=== PATIENT | female | born 1935 | race Caucasian/White ===

== ENCOUNTER → 2017-10-08 | Outpatient (CLI) | payer MEDICARE, OTHER | END | disposition home or self-care (01) | LOC: HKI 13:17 | DX: M17.0 Bilateral primary osteoarthritis of knee (principal); I10 Essential (primary) hypertension; Z96.643 Presence of artificial hip joint, bilateral | CPT/HCPCS: 73562; 73562-50 ==

== ENCOUNTER → 2017-12-24 | Outpatient (CLI) | payer MEDICARE, OTHER | END | disposition home or self-care (01) | LOC: HKI 10:37 | DX: Z47.1 Aftercare following joint replacement surgery (principal); Z96.652 Presence of left artificial knee joint | CPT/HCPCS: G0463 ==

== ENCOUNTER → 2017-12-27 | Outpatient (CLI) | payer MEDICARE, OTHER | END | disposition home or self-care (01) | LOC: LAB 08:00 | DX: Z01.818 Encounter for other preprocedural examination (principal) | CPT/HCPCS: 87081 ==

== ENCOUNTER 2018-01-03 08:06 | Observation (INO) | payer MEDICARE, OTHER ==
[~2018-01-03 08:06] MED LIST: CEFAZOLIN 2 GM/50 ML (PMX) 50 ML (FOR WT < 120 KG) IVPB; EPHEDrine SULFATE 50 MG/5 ML SYG
[2018-01-03] MEDS: ACETAMINOPHEN 1000MG/100ML IV 100 ML IVPB (10:35)
[2018-01-03] MEDS: LANSOPRAZOLE 30 MG CAP PO (10:37)
[2018-01-03] MEDS: DEXAMETHASONE 4 MG/ML 1 ML INJ IV (10:37)
[2018-01-03] MEDS: ONDANSETRON 4 MG INJ IV ×3 (10:37→19:57)
[2018-01-03] MEDS ORDERED: DIPHENHYDRAMINE 50 MG INJ IV (12:00)
[2018-01-03] MEDS ORDERED: MAGNESIUM HYDROXIDE 30ML CUP PO (12:00)
[2018-01-03] MEDS ORDERED: SENNA/DOCUSATE NA (8.6MG/50MG) TAB PO (12:00)
[2018-01-03] MEDS ORDERED: NA PHOSPHATE/BIPHOS 133 ML ENEMA PR (12:00)
[2018-01-03] MEDS ORDERED: KETOROLAC 15 MG INJ IV (12:00)
[2018-01-03] MEDS ORDERED: BETHANECHOL 25 MG TAB PO (12:00)
[2018-01-03] MEDS ORDERED: BISACODYL 10 MG SUPP PR (12:00)
[2018-01-03] MEDS ORDERED: NALOXONE (0.4 MG/ML) INJ IV (12:00)
[2018-01-03] MEDS ORDERED: BUPIVACAINE 0.75%/DEXT (SPINAL) 2 ML INJ (12:38)
[2018-01-03] MEDS ORDERED: PROPOFOL 20 ML (12:40)
[2018-01-03] MEDS ORDERED: MIDAZOLAM 1 MG/ML 2 ML INJ (12:40)
[2018-01-03] MEDS: LACTATED RINGER'S 1,000 ML IV (12:40)
[2018-01-03] MEDS ORDERED: LIDOCAINE 2% (SDV) 5 ML INJ (12:40)
[2018-01-03] MEDS ORDERED: CEFAZOLIN 1 GM INJ (12:40)
[2018-01-03] MEDS: METHYLPREDNISOLONE 40 MG INJ IV (12:47)
[2018-01-03] MEDS ORDERED: METOCLOPRAMIDE 10 MG INJ (13:26)
[2018-01-03] MEDS ORDERED: ATROPINE 1 MG/10 ML SYRINGE (13:26)
[2018-01-03] MEDS ORDERED: ONDANSETRON 4 MG INJ (13:26)
[2018-01-03] MEDS ORDERED: METHYLPREDNISOLONE 125 MG INJ (13:39)
[2018-01-03] MEDS: TRANEXAMIC ACID 1,000 MG in D5W 100 ML AT INCISION X1 IVPB (14:18)
[2018-01-03] MEDS: TRANEXAMIC ACID 1,000 MG in D5W 100 ML AT CLOSURE X1 IVPB (14:18)
[2018-01-03] MEDS: BACITRACIN 50000 UNITS INJ (14:32)
[2018-01-03] MEDS: POLYMYXIN B 500000 UNIT INJ (14:33)
[2018-01-03] MEDS ORDERED: ROPIVACAINE 0.5 % 30 ML VIAL (14:41)
[2018-01-03] MEDS ORDERED: hydrALAzine 20 MG INJ IV (15:30)
[2018-01-03] MEDS ORDERED: MIDAZOLAM 1 MG/ML 2 ML INJ IV (15:30)
[2018-01-03] MEDS ORDERED: EPHEDrine SULFATE 50 MG/5 ML SYG IV (15:30)
[2018-01-03] MEDS ORDERED: HYDROmorphONE 1 MG/5 ML IV SYRINGE IV ×3 (15:30)
[2018-01-03] MEDS ORDERED: LABETALOL HCL 20MG INJ IV (15:30)
[2018-01-03] MEDS ORDERED: MEPERIDINE 25 MG INJ IV (15:30)
[2018-01-03] MEDS ORDERED: ONDANSETRON 4 MG INJ IV (15:30)
[2018-01-03] MEDS ORDERED: OXYCODONE/ACETAMINOPHEN (5/325) TAB PO ×2 (15:30)
[2018-01-03] MEDS ORDERED: METOCLOPRAMIDE 10 MG INJ IV (15:30)
[2018-01-03] MEDS ORDERED: FENTAnyl 50 MCG/ML VIAL IV ×2 (15:30)
[2018-01-03] MEDS: CEFAZOLIN 1 GM/50 ML (PMX) 50 ML IVPB ×2 (15:39→19:57)
[2018-01-03] MEDS: DOCUSATE SODIUM 100 MG CAP PO (15:39)
[2018-01-03] MEDS: DIPHENHYDRAMINE 50 MG INJ IV (15:39)
[2018-01-03] MEDS: ASPIRIN (EC) 325 MG TAB PO (15:40)
[2018-01-03] MEDS: FENTAnyl 50 MCG/ML VIAL IV (16:24)
[2018-01-03] MEDS: SOD CHLORIDE 0.9% 1,000 ML IV (18:27)
[2018-01-03] MEDS: oxyCODONE 5 MG TAB PO (18:39)
[2018-01-03] MEDS: ARFORMOTEROL TARTRATE 15MCG/2 ML AMP INH (19:25)
[2018-01-03] MEDS: BUDESONIDE (NEB) 0.5MG/2ML AMP INH (19:25)
[2018-01-03] MEDS: METOPROLOL (XL) 25 MG TAB PO (21:00)
[2018-01-03] MEDS: CELECOXIB 100 MG CAP PO (21:00)
[2018-01-03] MEDS: SUCRALFATE 1 GM TAB PO (21:00)
[2018-01-03] MEDS: FISH OIL 1,000 MG CAP PO (21:41)
[2018-01-03] MEDS: MONTELUKAST 10 MG TAB PO (21:41)
[2018-01-03] MEDS: EZETIMIBE 10 MG TAB PO (21:41)
[2018-01-03] MEDS: GABAPENTIN 100 MG CAP PO (21:55)
[2018-01-03] MEDS: LOSARTAN 50 MG TAB PO (21:55)
[2018-01-03] MEDS: traZODone 50 MG TAB PO (23:26)
[2018-01-03] MEDS: AMLODIPINE 5 MG TAB PO (23:27)
[2018-01-04] MEDS: SOD CHLORIDE 0.9% 1,000 ML IV ×2 (00:14→12:44)
[2018-01-04] MEDS: ONDANSETRON 4 MG INJ IV ×2 (01:35→05:48)
[2018-01-04] MEDS: CEFAZOLIN 1 GM/50 ML (PMX) 50 ML IVPB (05:47)
[2018-01-04] MEDS ORDERED: PANTOPRAZOLE (EC) 40 MG TAB PO (06:00)
[2018-01-04] MEDS: LACTATED RINGER'S 1,000 ML IV ×2 (06:00→07:00)
[2018-01-04] MEDS ORDERED: NON-FORMULARY/PATIENT OWN MED (Ubidecarenone (Coq-10) 100 MG) PO (09:00)
[2018-01-04] MEDS: METOPROLOL (XL) 25 MG TAB PO ×2 (09:00→20:18)
[2018-01-04] MEDS: AMLODIPINE 5 MG TAB PO ×2 (09:00→21:00)
[2018-01-04] MEDS ORDERED: LOSARTAN 50 MG TAB PO (09:00)
[2018-01-04] MEDS: ARFORMOTEROL TARTRATE 15MCG/2 ML AMP INH ×2 (09:08→20:51)
[2018-01-04] MEDS: BUDESONIDE (NEB) 0.5MG/2ML AMP INH ×2 (09:19→20:51)
[2018-01-04] MEDS: SUCRALFATE 1 GM TAB PO ×5 (09:25→20:30)
[2018-01-04] MEDS: FISH OIL 1,000 MG CAP PO ×2 (09:25→20:16)
[2018-01-04] MEDS: ASPIRIN (EC) 325 MG TAB PO (09:26)
[2018-01-04] MEDS: DOCUSATE SODIUM 100 MG CAP PO ×2 (09:26→20:16)
[2018-01-04] MEDS: GABAPENTIN 100 MG CAP PO ×2 (09:26→20:21)
[2018-01-04] MEDS: CHOLECALCIFEROL 1,000 UNIT TAB PO (09:26)
[2018-01-04] MEDS: FERROUS FUMARATE (SR) TAB PO ×2 (09:26→20:16)
[2018-01-04 11:17] LABS: ADD MAN DIFF? NO
[2018-01-04 11:21] LABS: BASOPHILS % 0.1 % (0.0-2.0); HEMATOCRIT 37.7 % (37.0-47.0); HEMOGLOBIN 11.8 g/dl (12.0-16.0); LYMPHOCYTES % 9.3 % (15.0-51.0); MEAN CORPUSCULAR HEMOGLOBIN 29.1 pg (29.0-33.0); MEAN CORPUSCULAR HGB CONC 31.3 g/dl (32.0-37.0); MEAN CORPUSCULAR VOLUME 93.1 fl (82.0-101.0); MEAN PLATELET VOLUME 9.9 fl (7.4-10.4); MONOCYTE # 0.7 10^3/ul (0.3-0.9); MONOCYTES % 6.9 % (0.0-11.0); NEUTROPHILS % 83.2 % (39.0-77.0); PLATELET COUNT 196 10^3/UL (140-415); RED BLOOD COUNT 4.05 10^6/ul (4.20-5.40); RED CELL DISTRIBUTION WIDTH 14.2 % (11.5-14.5)
[2018-01-04 11:21] LABS: WHITE BLOOD COUNT 10.8 10^3/ul (4.8-10.8)
[2018-01-04] MEDS: CELECOXIB 100 MG CAP PO ×2 (11:23→20:19)
[2018-01-04 11:46] LABS: ANION GAP 14 (8-16); BLOOD UREA NITROGEN 15 mg/dl (7-20); CARBON DIOXIDE 25 mmol/L (21-31); CHLORIDE 105 mmol/L (97-110); CREATININE 0.63 mg/dl (0.44-1.00); GLUCOSE 209 mg/dl (70-220); POTASSIUM 3.6 mmol/L (3.5-5.1); SODIUM 140 mmol/L (135-144)
[2018-01-04] MEDS: oxyCODONE 5 MG TAB PO ×2 (19:15→23:23)
[2018-01-04] MEDS: MONTELUKAST 10 MG TAB PO (20:17)
[2018-01-04] MEDS: EZETIMIBE 10 MG TAB PO (20:18)
[2018-01-04] MEDS: LOSARTAN 50 MG TAB PO (20:19)
[2018-01-05] MEDS: traZODone 50 MG TAB PO (00:40)
[2018-01-05] MEDS: AMLODIPINE 5 MG TAB PO ×2 (00:47→09:12)
[2018-01-05] MEDS: SOD CHLORIDE 0.9% 1,000 ML IV ×2 (01:14→13:13)
[2018-01-05] MEDS: PANTOPRAZOLE (EC) 40 MG TAB PO (06:05)
[2018-01-05] MEDS: oxyCODONE 5 MG TAB PO ×3 (06:30→12:24)
[2018-01-05] MEDS: BUDESONIDE (NEB) 0.5MG/2ML AMP INH (08:02)
[2018-01-05] MEDS: ARFORMOTEROL TARTRATE 15MCG/2 ML AMP INH (08:02)
[2018-01-05] MEDS: GABAPENTIN 100 MG CAP PO (09:11)
[2018-01-05] MEDS: SUCRALFATE 1 GM TAB PO ×2 (09:11→12:24)
[2018-01-05] MEDS: METOPROLOL (XL) 25 MG TAB PO (09:13)
[2018-01-05] MEDS: CHOLECALCIFEROL 1,000 UNIT TAB PO (09:13)
[2018-01-05] MEDS: FERROUS FUMARATE (SR) TAB PO (09:14)
[2018-01-05] MEDS: ASPIRIN (EC) 325 MG TAB PO (09:14)
[2018-01-05] MEDS: DOCUSATE SODIUM 100 MG CAP PO (09:14)
[2018-01-05] MEDS: FISH OIL 1,000 MG CAP PO (09:14)
[2018-01-05] MEDS: CELECOXIB 100 MG CAP PO (09:21)
[2018-01-05 09:31] LABS: ADD MAN DIFF? NO
[2018-01-05 09:35] LABS: WHITE BLOOD COUNT 9.4 10^3/ul (4.8-10.8)
[2018-01-05 09:35] LABS: BASOPHILS % 0.4 % (0.0-2.0); EOSINOPHILS # 0.1 10^3/ul (0.0-0.5); EOSINOPHILS % 1.4 % (0.0-7.0); HEMATOCRIT 39.7 % (37.0-47.0); HEMOGLOBIN 12.5 g/dl (12.0-16.0); LYMPHOCYTES # 1.1 10^3/ul (0.8-2.9); LYMPHOCYTES % 11.6 % (15.0-51.0); MEAN CORPUSCULAR HEMOGLOBIN 29.9 pg (29.0-33.0); MEAN CORPUSCULAR HGB CONC 31.5 g/dl (32.0-37.0); MEAN PLATELET VOLUME 9.4 fl (7.4-10.4); MONOCYTE # 0.7 10^3/ul (0.3-0.9); MONOCYTES % 7.1 % (0.0-11.0); NEUTROPHIL # 7.4 10^3/ul (1.6-7.5); NEUTROPHILS % 79.2 % (39.0-77.0); PLATELET COUNT 189 10^3/UL (140-415); RED BLOOD COUNT 4.18 10^6/ul (4.20-5.40); RED CELL DISTRIBUTION WIDTH 14.6 % (11.5-14.5)
[2018-01-05 09:55] LABS: ANION GAP 13 (8-16); BLOOD UREA NITROGEN 17 mg/dl (7-20); CALCIUM 8.8 mg/dl (8.4-10.2); CARBON DIOXIDE 30 mmol/L (21-31); CHLORIDE 99 mmol/L (97-110); CREATININE 0.64 mg/dl (0.44-1.00); GLUCOSE 132 mg/dl (70-220); POTASSIUM 3.9 mmol/L (3.5-5.1); SODIUM 138 mmol/L (135-144)
== END 2018-01-05 15:55 | disposition home health service (06) ==
LOC: REC 08:06 → MS1 17:04
DX: M17.0 Bilateral primary osteoarthritis of knee (principal); J45.909 Unspecified asthma, uncomplicated; J44.9 Chronic obstructive pulmonary disease, unspecified; E78.5 Hyperlipidemia, unspecified; I10 Essential (primary) hypertension; K21.9 Gastro-esophageal reflux disease without esophagitis; G47.00 Insomnia, unspecified; Z96.643 Presence of artificial hip joint, bilateral
CPT/HCPCS: 27447; 73560; 80048; 85025; 86850; 86900; 86901; 87081; 88304; 88311; 94640; 94664; 97110; 97116; 97161; 97165; 97530; 99217

== ENCOUNTER → 2018-01-14 | Outpatient (CLI) | payer MEDICARE, OTHER | END | disposition home or self-care (01) | LOC: HKI 10:37 | DX: Z09 Encounter for follow-up examination after completed treatment for conditions other than malignant neoplasm (principal); Z96.651 Presence of right artificial knee joint | CPT/HCPCS: 73560; 73560-LT; 87081 ==

== ENCOUNTER → 2018-02-11 | Outpatient (CLI) | payer MEDICARE, OTHER | END | disposition home or self-care (01) | LOC: HKI 10:18 | DX: Z47.1 Aftercare following joint replacement surgery (principal); Z96.652 Presence of left artificial knee joint | CPT/HCPCS: 73560; 73560-LT ==

== ENCOUNTER → 2018-06-03 | Outpatient (CLI) | payer MEDICARE, OTHER | END | disposition home or self-care (01) | LOC: HKI 09:46 | DX: M17.11 Unilateral primary osteoarthritis, right knee (principal) | CPT/HCPCS: 73560; 73560-LT ==